=== PATIENT | male | born 1990 | race Caucasian/White ===

== ENCOUNTER 2024-09-15 03:15 | Emergency (ER) | payer SELFPAY ==
[~2024-09-15] VITALS: Ht 167.6 cm; Wt 81.0 kg
[2024-09-15 03:25] VITALS: O2SAT 99
[2024-09-15] MEDS: SODIUM CHLORIDE 0.9% 1,000 ML IV ONE (03:45)
[2024-09-15 03:57] LABS: BASOPHILS % 0.4 % (0.0-2.0); EOSINOPHILS % 1.7 % (0.0-5.0); HEMATOCRIT. 47.4 % (42.0-52.0); HEMOGLOBIN. 15.9 g/dL (14.0-18.0); LYMPHOCYTES % 20.9 % (20.0-50.0); MEAN CORPUSCULAR HEMOGLOBIN 27.7 pg (28.0-32.0); MEAN CORPUSCULAR HGB CONC 33.5 g/dL (31.0-37.0); MEAN CORPUSCULAR VOLUME 82.6 fL (80.0-94.0); MEAN PLATELET VOLUME 8.1 fl (7.4-10.4); MONOCYTES % 6.2 % (2.0-8.0); NEUTROPHILS % 70.8 % (40.0-76.0); PLATELET 248 x1000/uL (130-400); RED BLOOD CELL COUNT 5.74 mill/uL (4.7-6.1); RED CELL DISTRIBUTION WIDTH 13.5 % (11.6-14.6); WHITE BLOOD COUNT 10.6 x1000/uL (4.5-11.0)
[2024-09-15 04:07] LABS: CHLORIDE 104 mEq/L (98-107); POTASSIUM 3.4 mEq/L (3.5-5.1); SODIUM 139 mEq/L (136-145)
[2024-09-15 04:09] LABS: CALCIUM 9.6 mg/dL (8.7-10.4)
[2024-09-15 04:13] LABS: GLUCOSE 116 mg/dL (70-105); UREA NITROGEN BLOOD 15 mg/dL (9-23)
[2024-09-15 04:15] LABS: TROPONIN I HIGH SENSITIVITY 12 ng/L (3.0-53)
[2024-09-15 04:24] LABS: CARBON DIOXIDE 26 mEq/L (21-32)
[2024-09-15 04:35] LABS: INR 0.9; PARTIAL THROMBOPLASTIN TIME 25.2 sec (23.4-31.0); PROTHROMBIN TIME 10.6 sec (9.6-11.0)
[2024-09-15] MEDS ORDERED: MORPHINE SULFATE 4 MG/ML INJ (FOR IV/IM USE) IV ONE (04:45)
[2024-09-15] MEDS ORDERED: ACET-2708 MT (04:58)
[2024-09-15] MEDS ORDERED: NAPR220C61 MT (04:58)
[2024-09-15] MEDS ORDERED: LIDO700A15 TP (04:58)
[2024-09-15] MEDS ORDERED: INHA1INH6 MC (04:59)
[2024-09-15] MEDS ORDERED: BACITRACIN ZINC OINT UDPKT TOP ONE (05:00)
[2024-09-15 05:54] VITALS: BP 133/67; PULSE 76; RESP 18; TEMP 36.94740; O2SAT 98
[2024-09-15] MEDS ORDERED: IOHEXOL-300 100 ML BOTTLE ONE (06:04)
== END 2024-09-15 05:56 | disposition home or self-care (01) ==
LOC: ER 03:15
DX: S22.42XA Multiple fractures of ribs, left side, initial encounter for closed fracture (principal); S80.01XA Contusion of right knee, initial encounter; G89.11 Acute pain due to trauma; Z79.899 Other long term (current) drug therapy; V98.8XXA Other specified transport accidents, initial encounter; Y93.89 Activity, other specified; Y92.89 Other specified places as the place of occurrence of the external cause; Y99.8 Other external cause status
CPT/HCPCS: 99285; 70450; 96360; 80048; 85025; 85610; 85730; 86850; 86900; 86901; 84484; 36415; 73564; 71260; 72125; 74177; Q9967; J2270; J7030